=== PATIENT | female | born 1960 | race Caucasian/White ===

== ENCOUNTER → 2023-09-14 11:47 | Outpatient (REF) | payer MEDICARE, OTHER, SELFPAY | LOC: RAD 11:47 | PROVIDERS: ATTENDING PHYSICIAN Internal Medicine Hematology & Oncology | DX: C34.30 Malignant neoplasm of lower lobe, unspecified bronchus or lung (principal); C78.00 Secondary malignant neoplasm of unspecified lung; Z79.899 Other long term (current) drug therapy; D64.81 Anemia due to antineoplastic chemotherapy | CPT/HCPCS: 71275; Q9967 ==